=== PATIENT | female | born 1985 | race Native Hawaiian/Other Pacific Islander ===

== ENCOUNTER 2017-08-08 12:08 | Emergency (ER) | payer BC, OTHER ==
[2017-08-08 12:19] VITALS: BP 125/82; PULSE 78; RESP 16; TEMP 98; O2SAT 100
[2017-08-08 13:18] LABS: BASO % 0.5 % (0.0-2.0); EOS # 0.1 K/uL (0.0-0.7); EOS % 1.4 % (0.0-4.0); HEMOGLOBIN 13.6 g/dL (12.0-16.0); LYMPH % 42.1 % (20.0-40.0); MEAN CORPUSCULAR HEMOGLOBIN 31.7 pg (27.0-31.0); MEAN CORPUSCULAR HGB CONC 34.6 g/dL (33.0-37.0); MONO # 0.4 K/uL (0.0-0.8); MONO % 5.8 % (0.0-10.0); NEUT # 3.5 K/uL (1.8-7.0); NEUT % 50.2 % (50.0-75.0); NRBC % 0.2 % (0.0-0.0); RBC 4.3 Mil/uL (3.80-5.20); RED CELL DISTRIBUTION WIDTH 12.2 % (11.5-14.5); WHITE BLOOD COUNT 7.1 K/uL (4.8-10.8)
--- NOTE | 2017-08-08 13:24 | ED PDOC ---
HPI: Female Pain Time Seen by Provider: 08/08/17 12:44 Chief Complaint (Nursing): Female Genitourinary Chief Complaint (Provider): Female Genitourinary History Per: Patient History/Exam Limitations: no limitations Onset/Duration Of Symptoms: Days (x1) Current Symptoms Are (Timing): Still Present Additional Complaint(s): 32 year old female with no significant past medical history, who presents to the ED complaining of vaginal bleeding x1 hour. Patient states she left a meeting at work and felt a large amount of vaginal bleeding. Also reports mild possible cramps. States bleeding has decreased to spotting. Patient reports a recent positive test and states she scheduled a visit with her OB this . Denies nausea, vomiting, diarrhea, or urinary problems. Patient is A2. LMP 07/07/2017. OB: [facility] [place] Last Menstral Period: 07/07/2017 : 4 Para: 1 Miscarriage: 2 Past Medical History Reviewed: Historical Data, Nursing Documentation, Vital Signs Vital Signs: Last Vital Signs Temp 98.0 F 08/08/17 12:15 Pulse 78 08/08/17 12:15 Resp 16 08/08/17 12:15 BP 125/82 08/08/17 12:15 Pulse Ox 100 08/08/17 12:15 - Medical History PMH: No Chronic Diseases - Surgical History Surgical History: No Surg Hx - Family History Family History: States: Unknown Family Hx - Home Medications Home Medications: Ambulatory Orders Medication Instructions Recorded Multivit/Folic Acid/I 1 tab PO DAILY 08/08/17 [] - Allergies Allergies/Adverse Reactions: Allergies Allergy/AdvReac Type Severity Reaction Status Date / Time No Known Allergies Allergy Verified 08/08/17 13:54 Review of Systems ROS Statement: Except As Marked, All Systems Reviewed And Found Negative Gastrointestinal: Positive for: Abdominal Pain (mild possible cramps). Negative for: Nausea, Vomiting, Diarrhea Genitourinary Female: Positive for: Vaginal Bleeding. Negative for: Dysuria, Frequency, Incontinence Physical Exam - Reviewed Nursing Documentation Reviewed: Yes Vital Signs Reviewed: Yes - Physical Exam Appears: Positive for: Non-toxic, No Acute Distress Head Exam: Positive for: ATRAUMATIC, NORMAL INSPECTION, NORMOCEPHALIC Skin: Positive for: Normal Color, Warm, Dry Eye Exam: Positive for: EOMI, Normal appearance, PERRL Neck: Positive for: Normal, Painless ROM, Supple Cardiovascular/Chest: Positive for: Regular Rate, Rhythm. Negative for: Murmur Respiratory: Positive for: Normal Breath Sounds. Negative for: Respiratory Distress Gastrointestinal/Abdominal: Positive for: Normal Exam, Bowel Sounds, Soft. Negative for: Tenderness Back: Positive for: Normal Inspection. Negative for: L CVA Tenderness, R CVA Tenderness, Vertebral Tenderness Extremity: Positive for: Normal ROM. Negative for: Pedal Edema, Deformity Neurologic/Psych: Positive for: Alert, Oriented (x3). Negative for: Motor/ Sensory Deficits - Laboratory Results Result Diagrams: 08/08/17 13:11 08/08/17 13:11 Interpretation Of Abn Labs: no acute - ECG O2 Sat by Pulse Oximetry: 100 (RA) Pulse Ox Interpretation: Normal - CT Scan/US US Other Rad Studies (CT/US): Interpreted By Me Other Rad Interpretation: IUP - Progress ED Course And Treament: 1534: Stable. AAOx3. Fu with obgyn. Medical Decision Making Medical Decision Making: Time: 12:49 Initial Impression: Vaginal bleeding, evaluation Initial Plan: --ABO/RH type --Blood type and screen --BMP --Beta-HCG, quantitative --ED Urine --ED Urine dip --CBC w/ differential --US OB Transvaginal --Reevaluation Scribe Attestation: Documented by Geoff Tsang, acting as a scribe for Keith Wan MD. Provider Scribe Attestation: All medical record entries made by the Scribe were at my direction and personally dictated by me. I have reviewed the chart and agree that the record accurately reflects my personal performance of the history, physical exam, medical decision making, and the department course for this patient. I have also personally directed, reviewed, and agree with the discharge instructions and disposition. Disposition - Clinical Impression Clinical Impression: Threatened - Patient ED Disposition Is Patient to be Admitted: No Counseled Patient/Family Regarding: Studies Performed, Diagnosis, Need For Followup - Disposition [facility] - [facility] Disposition: Routine/Home Disposition Time: 15:35 Condition: STABLE Additional Instructions: Return if not better in 3 days. Instructions: Threatened Miscarriage (ED) Forms: [employer] ([place])
[2017-08-08 13:28] LABS: MEAN CELL VOLUME 91.5 fl (81.0-99.0)
--- NOTE | 2017-08-08 14:15 | US ---
HISTORY: preg and pain COMPARISON: None available. TECHNIQUE: Standard protocol for this study/examination. FINDINGS: UTERUS: Measures 5.3 x 5.8 x 8.4 cm. Normal in size and appearance. Location of fibroid and size: Uterine body to the left of the midline 1.8 x 2.1 x 2.1 cm. ENDOMETRIUM: Gestational sac measurement 1.12 cm corresponds to gestational age of 5 weeks 2 days. Gestational sac based on LMP 4 weeks 4 days. MICA based on LMP: 04/13/2018 MICA based on biometry: 04/08/2018 CERVIX: No cervical abnormality identified. RIGHT OVARY: Measures 1.3 x 2.7 x 3.2 cm. No solid mass. Normal flow. LEFT OVARY: Measures 2.3 x 3.1 x 3.6 cm. No solid mass. Normal flow. FREE FLUID: No significant free fluid noted. OTHER FINDINGS: None. IMPRESSION: Gestational sac identified. No evidence of pole or yolk sac. Solitary uterine fibroid 2.1 x 1.8 x 2.1 cm. Unremarkable adnexa.
[2017-08-08 15:04] LABS: BLOOD UREA NITROGEN 11 mg/dl (7-17); CALCIUM 9.4 mg/dL (8.4-10.2); GFR AFRICAN-AMERICAN > 60; GFR NON-AFRICAN AMERICAN > 60
== END 2017-08-08 15:48 | disposition home or self-care (01) ==
LOC: H.ER 12:08
DX: O20.0 Threatened abortion (principal); Z3A.01 Less than 8 weeks gestation of pregnancy

== ENCOUNTER 2018-03-25 22:34 | Emergency (ER) | payer BC, OTHER ==
[2018-03-25 22:46] VITALS: TEMP 97.8; O2SAT 100
[2018-03-25] MEDS ORDERED: Lactated Ringer's 1,000 ML IV STA (23:12)
[2018-03-25] MEDS ORDERED: Sodium Chloride 0.9% 1,000 ML IV STA (23:25)
[2018-03-25 23:29] LABS: BASO % 0.4 % (0.0-2.0); EOS # 0.1 K/uL (0.0-0.7); HEMOGLOBIN 12.3 g/dL (12.0-16.0); LYMPH # 3.5 K/uL (1.0-4.3); LYMPH % 42.7 % (20.0-40.0); MEAN CELL VOLUME 91.8 fl (81.0-99.0); MEAN CORPUSCULAR HEMOGLOBIN 32.4 pg (27.0-31.0); MEAN CORPUSCULAR HGB CONC 35.3 g/dL (33.0-37.0); MEAN PLATELET VOLUME 9.3 fl (7.2-11.7); MONO # 0.5 K/uL (0.0-0.8); MONO % 6.5 % (0.0-10.0); NEUT % 49.4 % (50.0-75.0); NRBC % 0.1 % (0.0-0.0); RBC 3.79 Mil/uL (3.80-5.20); RED CELL DISTRIBUTION WIDTH 12.8 % (11.5-14.5); WHITE BLOOD COUNT 8.2 K/uL (4.8-10.8)
--- NOTE | 2018-03-25 23:37 | ED PDOC ---
HPI:Nausea, Vomiting, Diarrhea Time Seen by Provider: 03/25/18 22:56 Chief Complaint (Nursing): Chest Pain Chief Complaint (Provider): Vomiting and Abdominal pain History Per: Patient History/Exam Limitations: no limitations Onset/Duration Of Symptoms: Mins (x 30 prior to arrival ) Current Symptoms Are (Timing): Still Present Quality Of Discomfort: Burning Associated Symptoms: Vomiting Additional Complaint(s): 32 year old (A3) female presents to the ED with vomiting, abdominal discomfort and mild nausea, onset 30 minutes prior to arrival. She is currently 14 weeks and has not had any complications in this . Patient reports she awoke from sleeping with a burning sensation in her stomach radiating into chest. She then felt light headed and vomited. Patient last ate kalia with shrimp and blueberries and strawberries around 7 pm before going to sleep at 9 pm. She continues to feel the burning sensation. Denies diarrhea, urinary symptoms, vaginal discharge or bleeding, hematemeis, bilious vomit, sick contacts and recent travel. PMD: Dr. Eric Garza in [facility] Abnormal Vaginal Bleeding: No : 5 Para: 1 Miscarriage: 3 Past Medical History Reviewed: Historical Data, Nursing Documentation, Vital Signs Vital Signs: Last Vital Signs Temp 97.8 F 03/25/18 22:40 Pulse 76 03/25/18 23:00 Resp 25 H 03/25/18 22:40 BP 142/63 03/25/18 22:40 Pulse Ox 100 03/25/18 22:40 - Medical History PMH: No Chronic Diseases - Surgical History Surgical History: No Surg Hx - Family History Family History: States: Unknown Family Hx - Social History Current smoker - smoking cessation education provided: No Alcohol: None Drugs: Denies - Home Medications Home Medications: Ambulatory Orders Medication Instructions Recorded Multivit/Folic Acid/I 1 tab PO DAILY 08/08/17 [] Famotidine [Pepcid] 40 mg PO DAILY PRN #14 tab 03/26/18 Sucralfate [Carafate] 1 gm PO QID PRN #10 dose 03/26/18 - Allergies Allergies/Adverse Reactions: Allergies Allergy/AdvReac Type Severity Reaction Status Date / Time No Known Allergies Allergy Verified 03/25/18 22:40 Review of Systems ROS Statement: Except As Marked, All Systems Reviewed And Found Negative Constitutional: Positive for: Other (light headedness) Cardiovascular: Positive for: Chest Pain (burning), Light Headedness Respiratory: Positive for: Cough. Negative for: Pleuritic Pain Gastrointestinal: Positive for: Nausea (mild), Vomiting, Abdominal Pain ( discomfort radiating into chest). Negative for: Diarrhea, Hematemesis Genitourinary Female: Negative for: Dysuria, Frequency, Incontinence, Hematuria , Vaginal Discharge, Vaginal Bleeding Physical Exam - Reviewed Nursing Documentation Reviewed: Yes Vital Signs Reviewed: Yes - Physical Exam Appears: Positive for: Non-toxic, In Acute Distress (mild painful distress) Head Exam: Positive for: ATRAUMATIC, NORMAL INSPECTION, NORMOCEPHALIC Skin: Positive for: Warm, Dry Eye Exam: Positive for: EOMI, PERRL ENT: Negative for: Pharyngeal Erythema, Tonsillar Exudate Neck: Positive for: Painless ROM, Supple Cardiovascular/Chest: Positive for: Regular Rate, Rhythm. Negative for: Murmur Respiratory: Positive for: Normal Breath Sounds. Negative for: Respiratory Distress Gastrointestinal/Abdominal: Positive for: Normal Exam, Soft, Other (gravid uterus below umbilicus). Negative for: Tenderness, Mass, Guarding, Rebound Back: Positive for: Normal Inspection. Negative for: Decreased ROM Extremity: Positive for: Normal ROM. Negative for: Deformity Lymphatic: Negative for: Adenopathy Neurologic/Psych: Positive for: Alert. Negative for: Motor/Sensory Deficits - Laboratory Results Result Diagrams: 03/25/18 23:25 03/25/18 23:25 - ECG ECG: Positive for: Interpreted By Me ECG Rhythm: Positive for: Normal QRS, Normal ST Segment, Sinus Rhythm O2 Sat by Pulse Oximetry: 100 (RA) Pulse Ox Interpretation: Normal Medical Decision Making Medical Decision Makin:11 Impression: vomiting Differential diagnosis include but are not limited to: dyspepsia, reflux, early gastroenteritis and pancreatitis Initial Plan: --EKG --CMP --Lipase --Urine preg --Urine dip --CBC --lactated Ringers IV 1,000 mls/hr --NS IV --Pepcid 20 mg IVP No emergently significant abnormalities. Bedside US demonstrates + FH. DW pt findings and plan of care. 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 I have reviewed the chart and agree that the record accurately reflects my personal performance of the history, physical exam, medical decision making, and the department course for this patient. I have also personally directed, reviewed, and agree with the discharge instructions and disposition. Disposition - Clinical Impression Clinical Impression: Vomiting Counseled Patient/Family Regarding: Studies Performed, Diagnosis - Disposition Disposition: Routine/Home Disposition Time: 00:18 Condition: IMPROVED Additional Instructions: YOUR POTASSIUM WAS JUST BELOW NORMAL. PLEASE INCREASE YOUR POTASSIUM RICH FOODS. FOLLOW UP WITH YOUR SALES EXEC SCHEDULED. TAKE MEDICATIONS PRESCRIBED BLAND DIET FOR THE NEXT 48 HOURS. Prescriptions: Famotidine [Pepcid] 40 mg PO DAILY PRN #14 tab PRN Reason: reflux Sucralfate [Carafate] 1 gm PO QID PRN #10 dose PRN Reason: Abdominal pain Instructions: Nausea and Vomiting, Adult (DC) Forms: [facility] ED School/Work Excuse
[2018-03-25 23:38] LABS: ALB/GLOB RATIO 1.2 (1.0-2.1); ALT/SGPT 21 U/L (9-52); AST/SGOT 14 U/L (14-36); BLOOD UREA NITROGEN 10 mg/dl (7-17); CALCIUM 9.3 mg/dL (8.4-10.2); GFR NON-AFRICAN AMERICAN > 60; LIPASE 103 U/L (23-300)
[2018-03-26 00:57] VITALS: BP 100/62; PULSE 83; RESP 18
--- NOTE | 2018-03-26 09:23 | CARD ---
APPROVED REPORT Date of service: 03/25/2018 <Conclusion> Normal sinus rhythm Normal ECG
== END 2018-03-26 00:54 | disposition home or self-care (01) ==
LOC: H.ER 22:34
DX: O21.9 Vomiting of pregnancy, unspecified (principal)
CPT/HCPCS: 80053; 81025; 83690; 85025; 93005; 96374; 99284; J7030